=== PATIENT | female | born 1925 | race Caucasian/White ===

== ENCOUNTER 2016-11-13 23:08 | Inpatient (IN) | payer MEDICARE, OTHER ==
[~2016-11-13] VITALS: Ht 157.5 cm; Wt 54.0 kg
[~2016-11-13 23:08] MED LIST: ALPR0.5T3 PO; DULC5TAB PO; LEXA10TA PO; OCUVTAB PO; VITA10002 PO; VITA100064 PO
[2016-11-13 23:10] VITALS: BP 160/67; PULSE 110; RESP 22; TEMP 97.8; O2SAT 95
[2016-11-14 01:05] LABS: BASOPHIL # 0.1 TH/MM3 (0-0.2); BASOPHIL % 0.6 % (0.0-2.0); HEMATOCRIT 40.7 % (35.0-46.0); HEMO FLAGS DIFF FINAL; LYMPH % 4.5 % (9.0-44.0); LYMPHOCYTE # 0.8 TH/MM3 (1.0-4.8); MEAN CELL VOLUME 87.8 FL (80.0-100.0); MEAN CORPUSCULAR HEMOGLOBIN 29.1 PG (27.0-34.0); MEAN CORPUSCULAR HGB CONC 33.1 % (32.0-36.0); MONO % 3.6 % (0.0-8.0); NEUT % 91.3 % (16.0-70.0); PLATELET COUNT 305 TH/MM3 (150-450); RED BLOOD COUNT 4.64 MIL/MM3 (4.00-5.30); RED CELL DISTRIBUTION WIDTH 13.6 % (11.6-17.2); WHITE BLOOD COUNT 18.6 TH/MM3 (4.0-11.0)
[2016-11-14 01:17] LABS: ALKALINE PHOSPHATASE 63 U/L (45-117); TOTAL BILIRUBIN ADULT 0.4 MG/DL (0.2-1.0)
[2016-11-14 01:21] LABS: ALT (GPT) 15 U/L (10-53); ANION GAP 8 MEQ/L (5-15); AST (GOT) 30 U/L (15-37); BICARBONATE 27.1 MEQ/L (21.0-32.0); BLOOD UREA NITROGEN 13 MG/DL (7-18); CHLORIDE 103 MEQ/L (98-107); GLOMERULAR FILTRATION RATE 57 ML/MIN (>89); POTASSIUM 5.1 MEQ/L (3.5-5.1); SODIUM (NA) 138 MEQ/L (136-145)
[2016-11-14 02:16] VITALS: BP 136/67; PULSE 75; RESP 18; TEMP 98.7; O2SAT 96
--- NOTE | 2016-11-14 02:23 | PD ---
HPI Chief Complaint: Abdominal Pain Time Seen by Provider: 02:06 Travel History International Travel<30 days: No Contact w/Intl Traveler<30days: No Traveled to known affect area: No History of Present Illness HPI This is an 89-year-old female with no significant past history who presents here with complaints of nausea vomiting abdominal pain 2-3 hours. Daughter is at the bedside state they had [place] food tonight and shortly thereafter she started experiencing nausea vomiting. Daughter states that her mother has intermittent episodes of constipation and "toys around" laxatives. There is no reported fevers, chills. There is no reported dysuria or urinary symptoms. The patient has no previous episodes of similar pain. PFSH Past Medical History ?: Not Social History Tobacco Use: No Substance Use: No Allergies-Medications (Allergen,Severity, Reaction): Coded Allergies: No Known Allergies (Unverified , 11/13/16) Reported Meds & Prescriptions Reported Meds & Active Scripts Active Reported Vitamin B-12 (Cyanocobalamin) 1,000 Mcg Tab 1,000 Mcg PO DAILY Ocuvite (Multiple Vitamins W/ Minerals) 1 Tab 1 Tab PO DAILY Vitamin D (Cholecalciferol) 1,000 Unit Tab 1,000 Units PO DAILY Lexapro (Escitalopram Oxalate) 10 Mg Tab 10 Mg PO DAILY Alprazolam 0.5 Mg Tab 0.5 Mg PO HS PRN Dulcolax DR (Bisacodyl) 5 Mg Tabdr 5 Mg PO DAILY PRN Review of Systems Except as stated in HPI: all other systems reviewed are Neg General / Constitutional: No: Fever, Chills Eyes: Positive: Other (recent skin cancer removed from the left eyelid.) HENT: No: Headaches, Lightheadedness Cardiovascular: No: Chest Pain or Discomfort, Palpitations Respiratory: No: Cough, Shortness of Breath Gastrointestinal: Positive: Nausea, Vomiting, Abdominal Pain (scribed is diffuse), No: Hematemesis, Hematochezia Genitourinary: Positive: Frequency, Dysuria Musculoskeletal: No: Weakness Neurologic: No: Weakness, Syncope Physical Exam Narrative GENERAL: Well-nourished, well-developed patient. SKIN: Warm and dry. HEAD: Normocephalic/atraumatic. EYES: No injection or drainage. NECK: Supple, trachea midline. No JVD or lymphadenopathy. CARDIOVASCULAR: Regular rate and rhythm without murmurs, gallops, or rubs. RESPIRATORY: Breath sounds equal bilaterally. No accessory muscle use. GASTROINTESTINAL: Abdomen soft, non-tender, nondistended. MUSCULOSKELETAL: No cyanosis, or edema. BACK: Nontender without obvious deformity. No CVA tenderness. Data Data Last Documented VS Vital Signs Date Time Temp Pulse Resp B/P Pulse Ox O2 Delivery O2 Flow Rate FiO2 11/14/16 04:13 90 24 177/80 100 Nasal Cannula 2 11/14/16 02:16 98.7 Orders Complete Blood Count With Diff (11/14/16 00:20) Comprehensive Metabolic Panel (11/14/16 00:20) Urinalysis - C+S If Indicated (11/14/16 00:20) Iv Access Insert/Monitor (11/14/16 00:20) Lipase (11/14/16 00:20) Ondansetron Inj (Zofran Inj) (11/14/16 02:30) Morphine Inj (Morphine Inj) (11/14/16 02:30) Ct Abd/Pel W Iv Contrast(Rout) (11/14/16 02:17) Oral Contrast - Adult (11/14/16 02:21) Diatrizoate Liq ( Gastrochante Liq) (11/14/16 02:54) Iohexol 350 Inj (Omnipaque 350 Inj) (11/14/16 04:00) Morphine Inj (Morphine Inj) (11/14/16 04:30) Admit Order (Ed Use Only) (11/14/16 05:24) Labs Laboratory Tests Test 11/14/16 00:45 White Blood Count 18.6 TH/MM3 Red Blood Count 4.64 MIL/MM3 Hemoglobin 13.5 GM/DL Hematocrit 40.7 % Mean Corpuscular Volume 87.8 FL Mean Corpuscular Hemoglobin 29.1 PG Mean Corpuscular Hemoglobin 33.1 % Concent Red Cell Distribution Width 13.6 % Platelet Count 305 TH/MM3 Mean Platelet Volume 9.3 FL Neutrophils (%) (Auto) 91.3 % Lymphocytes (%) (Auto) 4.5 % Monocytes (%) (Auto) 3.6 % Eosinophils (%) (Auto) 0.0 % Basophils (%) (Auto) 0.6 % Neutrophils # (Auto) 17.0 TH/MM3 Lymphocytes # (Auto) 0.8 TH/MM3 Monocytes # (Auto) 0.7 TH/MM3 Eosinophils # (Auto) 0.0 TH/MM3 Basophils # (Auto) 0.1 TH/MM3 CBC Comment DIFF FINAL Differential Comment Sodium Level 138 MEQ/L Potassium Level 5.1 MEQ/L Chloride Level 103 MEQ/L Carbon Dioxide Level 27.1 MEQ/L Anion Gap 8 MEQ/L Blood Urea Nitrogen 13 MG/DL Creatinine 0.93 MG/DL Estimat Glomerular Filtration 57 ML/MIN Rate Random Glucose 158 MG/DL Calcium Level 8.8 MG/DL Total Bilirubin 0.4 MG/DL Aspartate Amino Transf 30 U/L (AST/SGOT) Alanine Aminotransferase 15 U/L (ALT/SGPT) Alkaline Phosphatase 63 U/L Total Protein 7.0 GM/DL Albumin 3.5 GM/DL Lipase 132 U/L [facility] Medical Decision Making Medical Screen Exam Complete: Yes Emergency Medical Condition: Yes Differential Diagnosis Foodborne illness versus bowel obstruction versus diverticulitis versus perforation Narrative Course 89-year-old female presents with intractable nausea vomiting abdominal pain. The patient and daughter had [place] food tonight. The vomiting and nausea started shortly thereafter. The patient had leukocytosis on exam which is likely secondary to de-margination. CT scan of the abdomen pelvis showed what appeared to be a partial bowel obstruction. I discussed with both the patient and her daughter that indication would be for an NG tube. At this point they wish to hold off on that. The patient is a patient of Dr. Joseluis Morales and the case was discussed with senior resident director of compensation kishore. The patient be admitted to Dr. Mcdowell. Diagnosis Primary Impression: Intractable nausea and vomiting Additional Impression: Partial bowel obstruction Vaughn Dickson MD Nov 14, 2016 02:23
[2016-11-14] MEDS ORDERED: MORPHINE SULFATE 4 MG/ML INJ IV PUSH ONE ×2 (02:30→04:30)
[2016-11-14] MEDS ORDERED: ONDANSETRON HCL 4 MG/2 ML VIAL IV PUSH ONE (02:30)
[2016-11-14] MEDS ORDERED: DIATRIZOATE MEGLUM/DIATRIZOATE SOD 9 ML CUP ONE (02:54)
[2016-11-14] MEDS ORDERED: IOHEXOL 350 MG/ML 10 ML VIAL (for RAD DIAG) IV ONE (04:00)
[2016-11-14 04:13] VITALS: BP 177/80; PULSE 90; RESP 24; O2SAT 100
--- NOTE | 2016-11-14 04:37 | RADRPT ---
EXAM DATE/TIME: 11/14/2016 03:55 [facility] COMPARISON: No previous studies available for comparison. INDICATIONS : Abdomen pain with vomiting. IV CONTRAST: 70 cc Omnipaque 350 (iohexol) IV ORAL CONTRAST: Partial prescribed oral contrast ingested. RADIATION DOSE: 5.38 CTDIvol (mGy) MEDICAL HISTORY : None SURGICAL HISTORY : None. ENCOUNTER: Initial ACUITY: 1 day PAIN SCALE: 10/10 LOCATION: Bilateral abdomen TECHNIQUE: Volumetric scanning of the abdomen and pelvis was performed. Using automated exposure control and ad justment of the mA and/or kV according to patient size, radiation dose was kept as low as reasonably achievable to obtain optimal diagnostic quality images. FINDINGS: Examination of the lung bases demonstrates no abnormality. No pleural fluid is identified. No pulmona ry nodules are present. Coronary artery calcifications are present. There is decreased density of the liver with respect to the spleen compatible with fatty infiltration . The spleen is unremarkable. Mild ascites is present over the dome of the liver. The gallbladder and pancreas are unremarkable. No intrahepatic or extrahepatic ductal dilatation is seen. The adrenal gl ands and kidneys appear normal bilaterally. No hydronephrosis or mass lesions are identified. There i s small bowel dilatation with a decompressed terminal ileum characteristic of a distal small bowel ob struction. Examination of the pelvis demonstrates no evidence of free fluid or pelvic mass. No abnormally enlarg ed inguinal or retroperitoneal lymph nodes are present. The bladder is unremarkable. There is diverti culosis without evidence of diverticulitis. There is calcification in a normal sized uterus character istic of fibroids. CONCLUSION: 1. Small bowel dilatation characteristic of distal small bowel obstruction. 2. Mild ascites Van Whittaker MD on November 14, 2016 at 4:31 Board Certified Radiologist. This report was verified electronically.
[2016-11-14] MEDS ORDERED: ALPRAZolam 0.5 MG TAB PO PRN (05:45)
[2016-11-14] MEDS ORDERED: BISACODYL EC 5 MG TABEC PO PRN (05:45)
[2016-11-14] MEDS ORDERED: MORPHINE SULFATE 4 MG/ML INJ IV PRN (05:45)
[2016-11-14] MEDS ORDERED: ONDANSETRON HCL 4 MG/2 ML VIAL IV PRN (05:45)
[2016-11-14] MEDS ORDERED: ACETAMINOPHEN 500 MG CPLT PO PRN (06:15)
--- NOTE | 2016-11-14 06:43 | HHI.HP ---
[facility] Service Family Medicine Primary Care Physician Joseluis Reed MD Admission Diagnosis intractable nausea vomiting, partial bowel obstruction. Diagnoses: International Travel<30 Days: No Contact w/Intl Traveler<30days: No Known Affected Area: No History of Present Illness 89-year-old female with past medical history of hyperlipidemia, melanoma presenting with 24 hour history of nausea/vomiting and abdominal pain. Pain started yesterday around 6 PM after eating some egg drop soup from a restaurant she and her daughter had never been to before. Daughter did not have the same soup. Pain is crampy and diffuse. At about 9 PM last night, the pain became severe at 10 PM she started having a few episodes of NBNB emesis. There is no associated diarrhea. Some associated chills but no fevers. There were no symptoms leading up to this episode of abdominal pain (no upper respiratory symptoms, no dysuria, no chest pain, no shortness of breath). Of note, she has baseline constipation typically having a bowel movement every 48-72 hours. Her last bowel movement was about 36 hours prior to presentation. (Sachin Montgomery MD R1) Review of Systems Constitutional: COMPLAINS OF: Chills, DENIES: Fever, Weight loss Endocrine: DENIES: Polyuria Eyes: COMPLAINS OF: Blurred vision, DENIES: Eye pain Ears, nose, mouth, throat: DENIES: Throat pain, Running Nose Respiratory: DENIES: Cough, Shortness of breath Cardiovascular: DENIES: Chest pain Gastrointestinal: COMPLAINS OF: Abdominal pain, Constipation, Nausea, Vomiting , Anorexia, DENIES: Black stools, Bloody stools, Diarrhea Genitourinary: DENIES: Abnormal vaginal bleeding Musculoskeletal: DENIES: Muscle aches Integumentary: DENIES: Rash Hematologic/lymphatic: DENIES: Bruising Neurologic: DENIES: Headache Psychiatric: DENIES: Confusion, Depression (Sachin Montgomery MD R1) Past Family Social History Past Medical History 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 Glaucoma history of melanoma on the face x 2 hyperlipidemia Past Surgical History hemorrhoidectomy surgery on eyes for glaucoma bilateral cataract surgery surgical excision of facial melanomas Reported Medications Reported Meds & Active Scripts Active Reported Vitamin B-12 (Cyanocobalamin) 1,000 Mcg Tab 1,000 Mcg PO DAILY Ocuvite (Multiple Vitamins W/ Minerals) 1 Tab 1 Tab PO DAILY Vitamin D (Cholecalciferol) 1,000 Unit Tab 1,000 Units PO DAILY Lexapro (Escitalopram Oxalate) 10 Mg Tab 10 Mg PO DAILY Alprazolam 0.5 Mg Tab 0.5 Mg PO HS PRN Dulcolax DR (Bisacodyl) 5 Mg Tabdr 5 Mg PO DAILY PRN (Sachin Montgomery MD R1) Allergies: Coded Allergies: No Known Allergies (Unverified , 11/14/16) Active Ordered Medications Current Medications Medications (Trade) Dose Ordered Sig/Lina Route Start Time Stop Time Status Last Admin (Morphine Inj) 1 mg Q4H PRN IV 11/14/16 05:45 (Protonix Inj) 40 mg DAILY IVP 11/14/16 09:00 (Heparin Inj) 5,000 units Q8H SQ 11/14/16 05:45 (Xanax) 0.5 mg HS PRN PO 11/14/16 05:45 (Dulcolax Ec) 5 mg DAILY PRN PO 11/14/16 05:45 (Lexapro) 10 mg DAILY PO 11/14/16 09:00 (Ocuvite) 1 tab DAILY PO 11/14/16 09:00 (Zofran Inj) 4 mg Q4HR PRN IV 11/14/16 08:00 (Whit-Colace) 2 tab BID PO 11/14/16 09:00 Family History Father: at approximately age 73 of heart attack Mother: at approximately age 61 of a lymphoma Siblings: one brother still alive with prostate cancer Children: two children alive in well Social History Marrital Status: Living Situation: independent apartment at [facility] Education: two years of college 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 Several ulcerated lesions on RLE from skin biopsies (suspected basal cell CA). No other rashes, ecchymoses or lesions. Cool and dry. HEAD: NC/AT EYES: Right eye with cataract, ptosis. PERRL. EOMI. No conjunctival injection or drainage. ENT: MMM, OP without erythema, tonsillar swelling, or exudate. NECK: Supple, no lymphadenopathy. CARDIOVASCULAR: NRRR. Normal S1/S2. No MRG. RESPIRATORY: CTAB. No crackles or wheezes. GASTROINTESTINAL: Abdomen soft, non-distended, diffusely tender to palpation. No rebound, no guarding. Feels filled with stool. No hepato-splenomegaly or palpable masses. MUSCULOSKELETAL: Extremities without clubbing, cyanosis, or edema. NEUROLOGICAL: Awake and alert. Moves all extremities without difficulty. Normal speech. Laboratory Laboratory Tests Test 11/14/16 00:45 White Blood Count 18.6 Red Blood Count 4.64 Hemoglobin 13.5 Hematocrit 40.7 Mean Corpuscular Volume 87.8 Mean Corpuscular Hemoglobin 29.1 Mean Corpuscular Hemoglobin 33.1 Concent Red Cell Distribution Width 13.6 Platelet Count 305 Mean Platelet Volume 9.3 Neutrophils (%) (Auto) 91.3 Lymphocytes (%) (Auto) 4.5 Monocytes (%) (Auto) 3.6 Eosinophils (%) (Auto) 0.0 Basophils (%) (Auto) 0.6 Neutrophils # (Auto) 17.0 Lymphocytes # (Auto) 0.8 Monocytes # (Auto) 0.7 Eosinophils # (Auto) 0.0 Basophils # (Auto) 0.1 CBC Comment DIFF FINAL Differential Comment Sodium Level 138 Potassium Level 5.1 Chloride Level 103 Carbon Dioxide Level 27.1 Anion Gap 8 Blood Urea Nitrogen 13 Creatinine 0.93 Estimat Glomerular Filtration 57 Rate Random Glucose 158 Calcium Level 8.8 Total Bilirubin 0.4 Aspartate Amino Transf 30 (AST/SGOT) Alanine Aminotransferase 15 (ALT/SGPT) Alkaline Phosphatase 63 Total Protein 7.0 Albumin 3.5 Lipase 132 (Sachin Montgomery MD R1) Result Diagram: 11/14/16 0045 11/14/165 Imaging Last Impressions Abdomen/Pelvis CT 11/14/16216 Signed Impressions: Service Date/Time: October 03:55 - CONCLUSION: 1. Small bowel dilatation characteristic of distal small bowel obstruction. 2. Mild ascites Van Whittaker MD (Sachin Montgomery MD R1) Assessment and Plan Assessment and Plan Is a 11-year-old female with past medical history significant for hyperlipidemia presenting with: Code Status DNR (Sachin Montgomery MD R1) Attending Attestation THIS CASE WAS DISCUSSED WITH THE RESIDENT PHYSICIANS. I HAVE REVIEWED THE RECORD AND AGREE WITH THE ABOVE NOTE AND PLAN OF CARE WAS DISCUSSED. I HAVE AUTHORIZED THE ORDER FOR ADMISSION TO AN IN-PATIENT STATUS. (Joseluis Reed MD) Problem List: (1) Partial bowel obstruction Status: Acute Plan: History of nausea/vomiting, last bowel movement 36 hours prior to admission, CT abdomen and pelvis showing distal dilatation suggestive of small bowel obstruction. * Nothing by mouth except medications * Continue home Dulcolax * Whit-Colace 1 tab twice a day * Place NG tube if nausea/vomiting continues * Zofran 4 mg IV every 6 hours as needed for nausea vomiting * Protonix 40 mg IV daily * Tylenol and morphine as needed for pain * Normal saline at 100 mL per hour * Advance diet as tolerated (2) Intractable nausea and vomiting Status: Acute Plan: See above (3) Leukocytosis Status: Acute Plan: Likely secondary to stress response, however quit also be urinary tract infection. * Follow-up urinalysis * Monitor CBC (4) Anxiety disorder Status: Chronic Plan: Continue home Lexapro (5) FEN Status: Acute Plan: Fluids: Normal saline at 100 mL per hour Electrolytes: Monitor and replace PRN Nutrition: Diet nothing by mouth except meds Pain: Tylenol pain scale 1-3, morphine 1 mg IV every 4 hours pain scale 4-10 DVT: Heparin 5000 units SQ every 8 hours GI: Protonix 40 mg IV daily N/V: Ondansetron for milligram IV every 4 hours when necessary (Sachin Montgomery MD R1) Problem Qualifiers (1) Intractable nausea and vomiting: Qualified Code: R11.2 - Intractable vomiting with nausea, unspecified vomiting type (2) Leukocytosis: Qualified Code: D72.825 - Bandemia (3) Anxiety disorder: Qualified Code: F41.9 - Anxiety disorder, unspecified type Sachin Montgomery MD R1 Nov 14, 2016 06:43 Joseluis Reed MD Nov 15, 2016 09:52
[2016-11-14] MEDS: HEPARIN SODIUM - SQ 10,000 UNITS/ML VIAL SQ SCH ×2 (06:44→13:45)
[2016-11-14] MEDS: SODIUM CHLOR 0.9% 1000 ML INJ 1,000 ML IV SCH ×4 (07:46→23:12)
[2016-11-14] MEDS: ONDANSETRON HCL 4 MG/2 ML VIAL IV PRN (07:47)
--- NOTE | 2016-11-14 08:27 | RADRPT ---
EXAM DATE/TIME: 11/14/2016 08:19 [facility] COMPARISON: No previous studies available for comparison. INDICATIONS : Fever MEDICAL HISTORY : None. SURGICAL HISTORY : None. ENCOUNTER: Initial ACUITY: 1 day PAIN SCORE: 0/10 LOCATION: Bilateral chest FINDINGS: A single view of the chest demonstrates the lungs to be symmetrically aerated without evidence of mas s, infiltrate or effusion. Low lung volumes. A linear area of nodularity is seen involving the latera l aspect left upper lobe. The cardiomediastinal contours are unremarkable. Osseous structures are in tact. CONCLUSION: Low lung volumes. No acute infiltrate. Linear area of nodularity involving the lateral aspect of the left upper lobe. This may simply relate to scarring, however, I would suggest further characterizatio n utilizing a CT scan. This can be performed without IV contrast. Eriberto Donovan Jr., MD on November 14, 2016 at 8:24 Board Certified Radiologist. This report was verified electronically.
[2016-11-14] MEDS: DOCUSATE SODIUM 50 MG/SENNA 8.6 MG TAB PO SCH ×2 (09:00→21:00)
[2016-11-14] MEDS ORDERED: ESCITALOPRAM OXALATE 10 MG TAB PO SCH (09:00)
[2016-11-14] MEDS ORDERED: MULTIVITAMIN-OPHTHALMIC 1 TAB PO SCH (09:00)
[2016-11-14] MEDS ORDERED: PANTOPRAZOLE SODIUM 40 MG VIAL IVP SCH (09:00)
[2016-11-14 09:38] LABS: AUTOMATED NEUTROPHIL # 18.9 TH/MM3 (1.8-7.7); BASOPHIL # 0.1 TH/MM3 (0-0.2); BASOPHIL % 0.6 % (0.0-2.0); HEMATOCRIT 43.9 % (35.0-46.0); HEMO FLAGS DIFF FINAL; LYMPH % 2.8 % (9.0-44.0); LYMPHOCYTE # 0.6 TH/MM3 (1.0-4.8); MEAN CELL VOLUME 88.5 FL (80.0-100.0); MEAN CORPUSCULAR HEMOGLOBIN 28.9 PG (27.0-34.0); MEAN CORPUSCULAR HGB CONC 32.7 % (32.0-36.0); MONO % 6.4 % (0.0-8.0); NEUT % 90.2 % (16.0-70.0); PLATELET COUNT 366 TH/MM3 (150-450); RED BLOOD COUNT 4.96 MIL/MM3 (4.00-5.30); RED CELL DISTRIBUTION WIDTH 13.9 % (11.6-17.2); WHITE BLOOD COUNT 20.9 TH/MM3 (4.0-11.0)
[2016-11-14 09:49] LABS: BICARBONATE 27.2 MEQ/L (21.0-32.0); POTASSIUM 4.2 MEQ/L (3.5-5.1)
[2016-11-14 11:13] VITALS: BP 111/54; PULSE 95; RESP 28; O2SAT 93
[2016-11-14 13:00] VITALS: BP 109/55; PULSE 104; RESP 24; O2SAT 94
[2016-11-14] MEDS ORDERED: HYDROmorphone HCL PF 1 MG/ML VIAL IV PUSH PRN (15:30)
[2016-11-14 15:55] VITALS: BP 102/54; PULSE 104; RESP 24; TEMP 97.6
[2016-11-14] MEDS ORDERED: SODIUM CHLOR 0.9% 1000 ML INJ 1,000 ML IV ONE ×2 (16:00→18:00)
--- NOTE | 2016-11-14 16:45 | HHI.FPPN ---
Subjective Remarks FM Attending Note: Patient seen and examined. S: Chart and all resident physician notes reviewed. In summary this is a 89 year old female who was admitted with an admission diagnosis of Intractable Nausea/Vomiting, Partial Sbo. This patient was in normal health until last evening. She had gone out to dinner with her daughter and following dinner developed nausea with increasing abdominal pain and vomiting. She has a history of chronic constipation for which she uses Dulcolax tablets most days. On my last visit approximately 2 weeks ago we had discussed trying to use docusate daily and only use the Dulcolax if she goes more than 2 days without a bowel movement. According to the patient's daughter is with her today she does not believe that she's had a bowel movement for the last 48 hours. This patient is never had any abdominal surgery and no previous GI problems. 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 She also had removal of 2 large actinic keratoses from her right lateral lower leg which could have squamous cell carcinoma changes with ongoing follow-up with her bench machine operator. Since her admission the patient has had persistent pain which is relieved somewhat by her pain medication. She had an NG tube placed approximately 45 minutes prior to my visit. She had a CT scan of the abdomen that suggested a partial small bowel obstruction; reviewing the image suggests a fair amount of stool in the bowel. 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 Glaucoma history of melanoma on the face x 2 hyperlipidemia Past Surgical/Procedural History: hemorrhoidectomy surgery on eyes for glaucoma bilateral cataract surgery surgical excision of facial melanomas Other Physicians/Providers Involved in the Care of Patient: Dr. Cao, Dr. 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 Tobacco: none Objective Vitals Vital Signs Date Time Temp Pulse Resp B/P Pulse Ox O2 Delivery O2 Flow Rate FiO2 11/14/16 15:55 97.6 104 24 102/54 Room Air 11/14/16 13:00 104 24 109/55 94 Room Air 11/14/16 11:13 95 28 111/54 93 Room Air 11/14/16 04:13 90 24 177/80 100 Nasal Cannula 2 11/14/16 02:16 98.7 75 18 136/67 96 Room Air 11/13/16 23:10 97.8 110 22 160/67 95 Room Air Result Diagram: 11/14/16 0905 11/14/16 09 Other Results Item Value Date Time Lactic Acid Level 2.9 mmol/L H 11/14/16 0905 Total Bilirubin 0.4 MG/DL 11/14/16 0045 Aspartate Amino Transf (AST/SGOT) 30 U/L 11/14/16 0045 Alanine Aminotransferase (ALT/SGPT) 15 U/L 11/14/16 0045 Alkaline Phosphatase 63 U/L 11/14/16 0045 Lipase 132 U/L 11/14/16 0045 Imaging Last 48 hours Impressions Abdomen/Pelvis CT 11/14/16 0217 Signed Impressions: Service Date/Time: October 03:55 - CONCLUSION: 1. Small bowel dilatation characteristic of distal small bowel obstruction. 2. Mild ascites Van Whittaker MD Chest X-Ray 11/14/16 0000 Signed Impressions: Service Date/Time: October 08:19 - CONCLUSION: Low lung volumes. No acute infiltrate. Linear area of nodularity involving the lateral aspect of the left upper lobe. This may simply relate to scarring, however, I would suggest further characterization utilizing a CT scan. This can be performed without IV contrast. Eriberto Donovan Jr., MD Objective Remarks O. CONSTITUTIONAL/GEN: normally nourished, in general appearance is slightly younger than her chronologic age. EYES: conjunctiva normal, PERRLA, EOMI. ENT: Mouth and pharynx normal. NG tube in place. LUNGS: clear A-P, respiratory effort is normal. CARDIOVASCULAR: RR without murmur or gallop. No significant edema. GI/ABD: Bowel sounds are absent. The lower abdominal area is somewhat distended with tenderness and slight guarding to direct palpation. No rebound tenderness is noted. NEURO: No focal deficits. SKIN: She has a healing surgical wound underneath the right eyelid. She also has open areas on the right lateral lower leg where she had skin lesions removed by dermatology last week. There is some mild surrounding erythema but this has been present when I last saw the patient and was thought to be a sensitivity reaction to neomycin which she had been using chronically on her skin lesions. MUSC: back is normal in appearance. Extremities are normal in appearance. PSYCH/MENTAL STATUS: At the time of my visit the patient was somnolent. She would awaken and recognizes me but then would doze off. A/P Assessment and Plan Is a 11-year-old female with past medical history significant for hyperlipidemia presenting with: Problem List: (1) Partial bowel obstruction Status: Acute Plan: History of nausea/vomiting, last bowel movement 36 hours prior to admission, CT abdomen and pelvis showing distal dilatation suggestive of small bowel obstruction. * Nothing by mouth except medications * Continue home Dulcolax * Whit-Colace 1 tab twice a day * Place NG tube if nausea/vomiting continues * Zofran 4 mg IV every 6 hours as needed for nausea vomiting * Protonix 40 mg IV daily * Tylenol and morphine as needed for pain * Normal saline at 100 mL per hour * Advance diet as tolerated 11/14/16 I discussed this case with Dr.Bich Holt. Her abdominal findings and increasing white count are somewhat worrisome. She just had the NG tube placed so well monitor her progress over the next few hours. She does appear to be somewhat dehydrated so will increase her IV fluids. Will consult GI for their evaluation with surgical consultation if no improvement occurs with conservative medical management. (2) Intractable nausea and vomiting Status: Acute Plan: See above (3) Leukocytosis Status: Acute Plan: Likely secondary to stress response, however quit also be urinary tract infection. * Follow-up urinalysis * Monitor CBC (4) Anxiety disorder Status: Chronic Plan: Continue home Lexapro (5) FEN Status: Acute Plan: Fluids: Normal saline at 100 mL per hour Electrolytes: Monitor and replace PRN Nutrition: Diet nothing by mouth except meds Pain: Tylenol pain scale 1-3, morphine 1 mg IV every 4 hours pain scale 4-10 DVT: Heparin 5000 units SQ every 8 hours GI: Protonix 40 mg IV daily N/V: Ondansetron for milligram IV every 4 hours when necessary Problem Qualifiers (1) Intractable nausea and vomiting: Qualified Code: R11.2 - Intractable vomiting with nausea, unspecified vomiting type (2) Leukocytosis: Qualified Code: D72.825 - Bandemia (3) Anxiety disorder: Qualified Code: F41.9 - Anxiety disorder, unspecified type Joseluis Reed MD Nov 14, 2016 16:45
--- NOTE | 2016-11-14 16:59 | HHI.PR ---
Addendum to Inpatient Note Addendum Reason: Additional Documentation Additional Information Patient reevaluated around 1500. Nursing reports increased pain and borderline low blood pressures. Patient seen at the bedside. Patient's daughter states the pain medication does not seem to be working. Patient seems to be uncomfortable. She has a little bit more confused at her baseline. Patient Unable to give much history secondary to clinical state. However, on direct questioning she states her pain is improved. She had just received 0.5 mg of Dilaudid. The daughter and patient agree they would not want surgery. Objective: Vital signs: Blood pressure 140/85 heart rate 104, respiratory rate 20, oxygen 98% on room air NG tube: Approximately 300 cc of dark black/red blood Gen.: Wearing NG tube., Appears uncomfortable. Abdominal exam: Diffusely hard abdomen Heart: Tachycardic rate Assessment/plan: 89-year-old female with clinical and radiographic presentation of small bowel obstruction now status post NG tube showing what appears to be coffee-ground emesis with bright red blood. Vital signs are currently stable. Patient is a DNR. Patient and daughter both state they do not want surgical intervention. We will proceed with the following plan. Transfer to ICU 1 L bolus fluid; then continue 150 cc per hour GI consult pending Serial H/h at 1700 and 2300 Lactic acid at 1700 Type and screen; depending on serial hemoglobin and vital signs, patient may need blood transfusion. Low threshold for critical care consult. Daughter plans to stay at bedside. Morphine 2 mg IV every 2 when necessary pain Xavi Bedolla MD R2 Nov 14, 2016 16:58
[2016-11-14] MEDS ORDERED: PIPERACIL-TAZO 3.375 GM PREMIX 50 ML IV SCH (18:00)
[2016-11-14] MEDS ORDERED: MORPHINE SULFATE 4 MG/ML INJ IV PUSH PRN (18:00)
[2016-11-14 18:44] LABS: AUTOMATED NEUTROPHIL # 25.5 TH/MM3 (1.8-7.7); BASOPHIL % 0.1 % (0.0-2.0); HEMATOCRIT 36.9 % (35.0-46.0); LYMPH % 3.9 % (9.0-44.0); LYMPHOCYTE # 1.2 TH/MM3 (1.0-4.8); MEAN CELL VOLUME 91.3 FL (80.0-100.0); MEAN CORPUSCULAR HEMOGLOBIN 28.5 PG (27.0-34.0); MEAN CORPUSCULAR HGB CONC 31.3 % (32.0-36.0); MONO % 8.8 % (0.0-8.0); NEUT % 87.2 % (16.0-70.0); PLATELET COUNT 331 TH/MM3 (150-450); RED BLOOD COUNT 4.05 MIL/MM3 (4.00-5.30); RED CELL DISTRIBUTION WIDTH 13.9 % (11.6-17.2); WHITE BLOOD COUNT 29.3 TH/MM3 (4.0-11.0)
[2016-11-14 18:51] LABS: HEMO FLAGS AUTO DIFF
[2016-11-14 19:03] LABS: BICARBONATE 22.3 MEQ/L (21.0-32.0); CALCIUM-PROTEIN CORRECTED 8.3 MG/DL (8.5-10.1); POTASSIUM 4.9 MEQ/L (3.5-5.1); TOTAL BILIRUBIN ADULT 0.6 MG/DL (0.2-1.0)
[2016-11-14 19:15] VITALS: BP 98/50; PULSE 120; RESP 27; TEMP 97.6; O2SAT 97
[2016-11-14 19:47] LABS: ACANTHOCYTES OCC (NORMAL); BANDS 26 % (0-6); METAMYELOCYTES 3 % (0-1); PLATELET ESTIMATE SMEAR NORMAL (NORMAL); PLATELET MORPHOLOGY NORMAL (NORMAL); POLYS (SEG NEUTROPHILS) 63 % (16-70); SCAN/DIFF FINAL DIFF MANUAL; WBC DIFF SAMPLE 100
[2016-11-14] MEDS ORDERED: VANCOMYCIN INJ 1,000 MG in SODIUM CHLOR 0.9% 250 ML INJ 250 ML IV SCH (20:00)
--- NOTE | 2016-11-14 21:29 | HHI.FPPN ---
Addendum to progress note ADDENDUM Reason for addendum: Additonal documentation Additional information Resident team paged for BP 77/44 with HR 108. Order placed for [address] to evaluation. Patient has already received two 1L NS boluses in the past 4-5 hours. S: Patient's son and daughter present in the room who both agree on nonsurgical intervention and pursuing medical management at this time. 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 Her daughter wishes to continue with IV antibiotics, fluid hydration, and pain control with the priority on ensuring the patient is comfortable. They do not want central line access for pressors and are understanding of patient's poor prognosis. O: Vital sign reevaluation after bolus: BP 100/53 HR 100 Patient initially sleeping comfortably in bed but awakens in pain with facial grimacing NG tube in place to medium intermittent suction with about 600 cc coffee-ground output Hypoactive BS. Abdomen firm in the lower quadrants Laboratory Tests Test 11/14/16 11/14/16 11/14/16 00:45 09:05 18:15 White Blood Count 18.6 TH/MM3 20.9 TH/MM3 29.3 TH/MM3 Red Blood Count 4.64 MIL/MM3 4.96 MIL/MM3 4.05 MIL/MM3 Hemoglobin 13.5 GM/DL 14.4 GM/DL 11.6 GM/DL Hematocrit 40.7 % 43.9 % 36.9 % Mean Corpuscular Volume 87.8 FL 88.5 FL 91.3 FL Mean Corpuscular Hemoglobin 29.1 PG 28.9 PG 28.5 PG Mean Corpuscular Hemoglobin 33.1 % 32.7 % 31.3 % Concent Red Cell Distribution Width 13.6 % 13.9 % 13.9 % Platelet Count 305 TH/MM3 366 TH/MM3 331 TH/MM3 Mean Platelet Volume 9.3 FL 9.5 FL 9.8 FL Neutrophils (%) (Auto) 91.3 % 90.2 % 87.2 % Lymphocytes (%) (Auto) 4.5 % 2.8 % 3.9 % Monocytes (%) (Auto) 3.6 % 6.4 % 8.8 % Eosinophils (%) (Auto) 0.0 % 0.0 % 0.0 % Basophils (%) (Auto) 0.6 % 0.6 % 0.1 % Neutrophils # (Auto) 17.0 TH/MM3 18.9 TH/MM3 25.5 TH/MM3 Lymphocytes # (Auto) 0.8 TH/MM3 0.6 TH/MM3 1.2 TH/MM3 Monocytes # (Auto) 0.7 TH/MM3 1.3 TH/MM3 2.6 TH/MM3 Eosinophils # (Auto) 0.0 TH/MM3 0.0 TH/MM3 0.0 TH/MM3 Basophils # (Auto) 0.1 TH/MM3 0.1 TH/MM3 0.0 TH/MM3 CBC Comment DIFF FINAL DIFF FINAL AUTO DIFF Differential Comment FINAL DIFF MANUAL Sodium Level 138 MEQ/L 138 MEQ/L 142 MEQ/L Potassium Level 5.1 MEQ/L 4.2 MEQ/L 4.9 MEQ/L Chloride Level 103 MEQ/L 102 MEQ/L 109 MEQ/L Carbon Dioxide Level 27.1 MEQ/L 27.2 MEQ/L 22.3 MEQ/L Anion Gap 8 MEQ/L 9 MEQ/L 11 MEQ/L Blood Urea Nitrogen 13 MG/DL 15 MG/DL 22 MG/DL Creatinine 0.93 MG/DL 1.12 MG/DL 1.74 MG/DL Estimat Glomerular Filtration 57 ML/MIN 46 ML/MIN 28 ML/MIN Rate Random Glucose 158 MG/DL 176 MG/DL 154 MG/DL Calcium Level 8.8 MG/DL 8.6 MG/DL 7.2 MG/DL Total Bilirubin 0.4 MG/DL 0.6 MG/DL Aspartate Amino Transf 30 U/L 11 U/L (AST/SGOT) Alanine Aminotransferase 15 U/L 11 U/L (ALT/SGPT) Alkaline Phosphatase 63 U/L 52 U/L Total Protein 7.0 GM/DL 5.1 GM/DL Albumin 3.5 GM/DL 2.3 GM/DL Lipase 132 U/L Lactic Acid Level 2.9 mmol/L 6.3 mmol/L Differential Total Cells 100 Counted Neutrophils % (Manual) 63 % Band Neutrophils % 26 % Lymphocytes % 5 % Monocytes % 3 % Neutrophils # (Manual) 27.0 TH/MM3 Metamyelocytes 3 % Platelet Estimate NORMAL Platelet Morphology Comment NORMAL Acanthocytes OCC Protein Corrected Calcium 8.3 MG/DL Blood Type A POSITIVE Antibody Screen NEGATIVE A/P: 89 year old female with melanoma but no prior cardiovascular disease or abdominal surgeries admitted for worsening abdominal pain, nausea, and vomiting initially suspected to be due to partial small bowel obstruction as suggested by CT imaging. With worsening clinical status, hypovolemia, and increasing white count and lactic acid, concern is for mesenteric ischemia and/ or possible bacteremia. - Broad spectrum antibiotic coverage with IV Zosyn 3.375 Q6H and IV vancomycin 1 g Q12H - Pain control with morphine 3 mg IV Q2H PRN and scheduled Ofirmev 1 g IV Q8H - Increase NS to 175 cc/hr and bolus 250 cc if SBP <80 (caution for fluid overload given prior boluses) - Continue NGT to MIS - Trend CBC, BMP, lactic acid, lipase, and amylase - Follow blood cultures - Consider palliative care/hospice consult in the AM sdw Dr. Ulises Abdul,Rosalee West MD Nov 14, 2016 21:29
[2016-11-14] MEDS: MORPHINE SULFATE 4 MG/ML INJ IV PUSH PRN (21:33)
[2016-11-14] MEDS ORDERED: ACETAMINOPHEN 1000 MG/100 ML VIAL IV SCH (22:00)
[2016-11-15] MEDS ORDERED: PIPERACIL-TAZO 2.25 GM PREMIX 50 ML IV SCH
[2016-11-15] MEDS: MORPHINE SULFATE 4 MG/ML INJ IV PUSH PRN ×2 (01:20→03:18)
[2016-11-15] MEDS: ONDANSETRON HCL 4 MG/2 ML VIAL IV PRN (03:17)
[2016-11-15] MEDS: SODIUM CHLOR 0.9% 1000 ML INJ 1,000 ML IV SCH (03:38)
[2016-11-15 04:00] VITALS: BP 69/39; PULSE 120; RESP 30; TEMP 97.7; O2SAT 93
--- NOTE | 2017-01-22 15:52 | HHI.DS ---
Summary Note Date of : Nov 15, 2016 Time Of : 511 Admission Date Nov 14, 2016 at 07:30 Admitting Diagnosis Intractable nausea and vomiting, partial small bowel obstruction Diagnosis at Time of : Brief History 89-year-old female with past medical history of hyperlipidemia, melanoma presenting with 24 hour history of nausea/vomiting and abdominal pain. Pain started yesterday around 6 PM after eating some egg drop soup from a restaurant she and her daughter had never been to before. Daughter did not have the same soup. Pain is crampy and diffuse. At about 9 PM last night, the pain became severe at 10 PM she started having a few episodes of NBNB emesis. There is no associated diarrhea. Some associated chills but no fevers. There were no symptoms leading up to this episode of abdominal pain (no upper respiratory symptoms, no dysuria, no chest pain, no shortness of breath). Of note, she has baseline constipation typically having a bowel movement every 48-72 hours. Her last bowel movement was about 36 hours prior to presentation. Imaging Abdomen/Pelvis CT 11/14/16 0217 Signed Impressions: Service Date/Time: October 03:55 - CONCLUSION: 1. Small bowel dilatation characteristic of distal small bowel obstruction. 2. Mild ascites Van Whittaker MD Chest X-Ray 11/14/16 0000 Signed Impressions: Service Date/Time: October 08:19 - CONCLUSION: Low lung volumes. No acute infiltrate. Linear area of nodularity involving the lateral aspect of the left upper lobe. This may simply relate to scarring, however, I would suggest further characterization utilizing a CT scan. This can be performed without IV contrast. Eriberto Donovan Jr., MD Hospital Course 89 year old female with melanoma but no prior cardiovascular disease or abdominal surgeries admitted for worsening abdominal pain, nausea, and vomiting on 11/14/16. It was initially suspected to be due to partial small bowel obstruction as suggested by CT imaging. Throughout the day she became hypotension and tachycardia with worsening pain. Her white count continued to increase and her lactic acid went up to 6.3 concerning for mesenteric ischemia and/or possible bacteremia. She was covered with broad spectrum IV antibiotics ( vancomycin and Zosyn) and NG tube was placed with coffee-ground output. Goals of care were reviewed with her family who did not want to pursue aggressive interventions (surgery, central line, pressors). She subsequently passed the morning of 11/15/16. Rosalee Abdul MD Jan 22, 2017 15:51
== END 2016-11-15 05:12 | disposition expired | DRG 390 ==
LOC: NEPE 23:08 → NEDA 11-14 05:26 → OBSVTOIN 11-14 07:30 → NEDH 11-14 10:34 → HIMN 11-14 20:00
PROVIDERS: ADMIT Family Medicine; ATTEND Family Medicine
DX: K56.60 Unspecified intestinal obstruction (principal); G62.9 Polyneuropathy, unspecified; E86.0 Dehydration; E86.1 Hypovolemia; E78.5 Hyperlipidemia, unspecified; Z85.820 Personal history of malignant melanoma of skin; Z82.49 Family history of ischemic heart disease and other diseases of the circulatory system; Z80.7 Family history of other malignant neoplasms of lymphoid, hematopoietic and related tissues; Z80.42 Family history of malignant neoplasm of prostate; Z66 Do not resuscitate; L57.0 Actinic keratosis; F41.9 Anxiety disorder, unspecified
CPT/HCPCS: 71010; 74177; 80048; 80053; 83605; 83690; 85007; 85025; 85027; 86850; 86900; 86901; 87040; 96374; 96375; 96376; C9113; J0131; J1170; J1644; J2270; J2405; J2543; J3370; J7030; J7050; Q9963; Q9967